=== PATIENT | male | born 1955 | race Caucasian/White ===

== ENCOUNTER 2021-08-16 14:18 | Emergency (ER) | payer BC ==
--- OUTSIDE RECORDS SUMMARY | 2021-08-16 14:20 | XMS REPORT | Continuity of Care Document ---
:1955 Author Organization [facility] t Address [address] [place] [address] Care Team Providers Name Role Phone Pcp, Does Not Have A Primary Care Physician MONTEZ Attending Clinician Unavailable Montez WEBER Attending Clinician Payers Payer Name Policy Type Policy Number Effective Date Expiration Date S ource [facility] [id number] 2016 00:00:00 Problems Condition Condition Condition Status Onset Resolution Last Treating Co mments Source Name Details Category Date Date Treatment Clinician Date Low back Low back Disease Active Unive rs pain with pain with 3-11 ity of right[place] sciatica, sciatica, Bran ch unspecifie unspecifie d back d back pain pain laterality laterality , , unspecifie unspecifie d d chronicity chronicity Acute Acute Disease Active 2018-09 Univers left-sided left-sided 2-03 it y of low back low back 00:00: [place] pain with pain with 00 Medi karin left-sided left-sided Br anch sciatica sciatica Lumbar Lumbar Disease Active 2018-09 Univers radiculopa radiculopa 2-03 it y of thy thy 00:00: [place] 00 Medical Branch Umbilical Umbilical Disease Active Uni vers hernia hernia ity of [place] [facility] Allergies, Adverse Reactions, Alerts Allergy Allergy Status Severity Reaction(s) Onset Inactive Treating Comm ents Source Name Type Date Date Clinician PENICILL Drug Active High Anaphylaxis Uni vers INS Class 5-15 ity of 00:00: [place] 00 Medical Branch Penicill Propensi Active Anaphylaxis 2017- U nivers ins ty to 5-15 ity of adverse 00:00: [place] reaction 00 Medical s to Branch drug Social History Social Habit Start Date Stop Date Quantity Comments Source History SDOH University o f Alcohol Frequency [facility] edical Branch History SDOH University o f Alcohol Std Drinks [place] [facility] History SDOH University o f Alcohol Binge [place] [facility] Exposure to Not sure [facility] SARS-CoV-2 (event) [facility] Alcohol intake 2019-09-01 2019-09-01 Current drinker Unive rsity of 00:00:00 00:00:00 of alcohol [facility] (finding) Branch Cigarette 2018-02-11 2018-02-11 University of pack-years 00:00:00 00:00:00 [facility] Tobacco use and 2018-02-11 2018-02-11 Never used Universit y of exposure 00:00:00 00:00:00 [facility] Alcohol Comment 2018-02-11 2018-02-11 3 drinks Universit y of 00:00:00 00:00:00 (beer/rum) per [facility] night Branch Cigarettes smoked 2018-02-11 2018-02-11 Univers ity of current (pack per 00:00:00 00:00:00 [facility] ) - Reported Branch History of tobacco 2012-09-30 Smoker Univer sity of use 00:00:00 [facility] Sex Ass[birth year] Universit y of 00:00:00 00:00:00 [facility] Smoking Status Start Date Stop Date Source Former smoker 2018-02-11 00:00:00 2018-02-11 00:00:00 Universi ty of [facility] Medications Ordered Filled Start Stop Current Ordering Indication Dosage Frequency Signature Comments Components Source Medication Medication Date Date Medication? Clinician (SIG) Name Name apremilast Yes 10mg Take 10 mg U nivers (OTEZLA 9-13 by mouth 2 ity of ORAL) 13:30: (two) [place] 13 times Medical daily. Branch apremilast Yes 10mg Take 10 mg U nivers (OTEZLA 9-13 by mouth 2 ity of ORAL) 13:30: (two) [place] 13 times Medical daily. Branch traMADol 50 2018-09 Yes [id number] 50mg Take 1 Univers mg tablet 2-03 tablet by ity o f 00:00: mouth [place] 00 every 6 Medical (six) Branch hours as needed for Pain (scale 7-10) for up to 30 doses. traMADol 50 2018-09 Yes [id number] 50mg Take 1 Univers mg tablet 2-03 tablet by ity o f 00:00: mouth [place] 00 every 6 Medical (six) Branch hours as needed for Pain (scale 7-10) for up to 30 doses. OTEZLA 2018-09 Yes Univers mg tablet 1-05 ity of 00:00: 00 [facility] Branch OTEZLA 2018-09 Yes Univers mg tablet 1-05 ity of 00:00: [place] 00 [facility] Immunizations Ordered Immunization Filled Immunization Date Status Commen ts Source Name Name Marley COVID-19 Hayleya COVID-19 2021-01-06 Completed Vaccine Vaccine 00:00:00 [place] COVID-19 Moderna COVID-19 2020-12-07 Completed Vaccine Vaccine 00:00:00 Vital Signs Vital Name Observation Time Observation Value Comments Source Body height 2021-07-24 14:05:00 170.2 cm [facility] Body weight 2021-07-24 14:05:00 92.534 kg [facility] BMI 2021-07-24 14:05:00 31.95 kg/m2 [facility] Procedures This patient has no known procedures. Encounters Start End Encounter Admission Attending Care Care Encounter Source Date/Time Date/Time Type Type Clinicians Facility Department ID 2021-09-04 2021-09-04 Outpatient [facility] [id number] Univers 08:30:00 08:30:00 [id number] ity [facility] [place] [facility] 2021-09-04 2021-09-04 Outpatient [facility] [id number] Univers 08:30:00 08:30:00 ity [facility] [place] [facility] 2021-07-24 2021-07-24 Office Pete Herrmann COBETH [id number] Univers 08:33:25 09:32:23 Visit HEALTH [id number] it y of CLEAR [id number] Myra ANSARI [id number] [address] OFFICE BUILDING 2021-07-24 2021-07-24 Outpatient [facility] [id number] Univers 08:30:00 08:30:00 ity [facility] [place] [facility] 2021-07-24 2021-07-24 Outpatient Lakeshia [facility]ERRMANN [facility] [id number] Univers 08:30:00 08:30:00 [id number] ity [facility] 2021-06-26 2021-06-26 Outpatient [facility]ia [facility] [id number] Univers 09:30:00 09:30:00 [id number] ity [facility] 2021-06-26 2021-06-26 Outpatient Lakeshia [facility] [id number] Univers 00:00:00 00:00:00 [facility] 2021-06-12 2021-06-12 Outpatient Lakeshia [facility] [id number] Univers 13:15:00 13:15:00 [id number] [facility] 2021-06-12 2021-06-12 Outpatient Lakeshia [facility] [id number] Univers 13:15[facility] 2021-01-06 Outpatient [facility] [id number] [facility] 00:00:00 00:00:00 V 2020-12-07 2020-12-07 Outpatient [facility] [id number] [facility] 00:00:00 00:00:00 V Results This patient has no known results.
[2021-08-16 14:46] LABS: Absolute Lymphocytes (CBC) 1.8 K/uL (0.7-4.9); Hematocrit 41.7 % (39.6-49.0); Lymphocytes % 31.5 % (15.3-44.8); MPV 7.1 fL (7.6-11.3); RBC Red Blood Cell Count 4.35 M/uL (4.33-5.43)
[2021-08-16] MEDS ORDERED: DIAZEPAM 5 MG TABLET ONE (14:47)
[2021-08-16] MEDS ORDERED: NA CHLORIDE 0.9% 500 ML ONE (14:47)
[2021-08-16] MEDS ORDERED: LORazepam 2 MG/ML VIAL ONE (14:51)
--- NOTE | 2021-08-16 14:52 | RAD REPORT ---
EXAM DESCRIPTION: CT - Ct Stroke Brain Wo Cont - 08/16/2021 2:43 pm CLINICAL HISTORY: DIZZINESS, CVA COMPARISON: No comparisons TECHNIQUE: Axial 5 millimeter thick images of the head were obtained without IV contrast. All CT scans are performed using dose optimization technique as appropriate and may include automated exposure control or mA/KV adjustment according to patient size. FINDINGS: No intracranial hemorrhage, mass, or cerebral edema. No acute infarction identifiable. No cortical edema or sulcal effacement. Ventricles are normal. Arterial and physiologic calcifications a re present. There is some patchy decreased attenuation in the external capsule and subcortical insula r cortex region. No extra-axial fluid collections. Figueroa matter-white matter differentiation is prese rved. Visualized portions of the mastoid air cells, paranasal sinuses, and orbits are unremarkable. Findings telephoned to Emily the emergency department 2:47 p.m. IMPRESSION: No hemorrhage or acute intracranial finding confirmed. Minimal chronic ischemic changes are evident. Follow-up MR imaging could be performed if there is ongoing concern for acute CVA.
[2021-08-16 15:00] LABS: Protime INR 0.96
[2021-08-16 15:05] LABS: BUN Blood Urea Nitrogen 15 mg/dL (7-18); Bicarbonate 25 mmol/L (21-32); Glucose Level 145 mg/dL (74-106); Potassium 3.8 mmol/L (3.5-5.1); Sodium Level 139 mmol/L (136-145); Troponin (Emerg Dept Use Only) < 0.02 ng/mL (0.0-0.045)
--- NOTE | 2021-08-16 15:36 | RAD REPORT ---
EXAM DESCRIPTION: MRI - Brain Wo Cont - 08/16/2021 3:22 pm CLINICAL HISTORY: DIZZINESS, stroke-like symptoms COMPARISON: Ct Stroke Brain Wo Cont dated 08/16/2021 TECHNIQUE: Sagittal T1-weighted images were obtained along with axial PD, heavily T2-weighted and T2 -FLAIR images. Axial DWI and ADC mapping sequences were also obtained along with coronal heavily T2-w eighted images. FINDINGS: No intracranial hemorrhage, mass or acute infarction. There is no edema or shift of midlin e structures. No extra-axial fluid collections. Figueroa-matter/white matter junction is preserved. Signa l voids are seen as a normal finding in the major intracranial vessels. No measurable atrophy changes . Patient only has trace amounts of chronic ischemic change in the cerebral white matter. No globe or orbital content abnormality. No sella or supra sella abnormality. Mastoid air cells and paranasal sinuses are clear. IMPRESSION: No infarction or other acute intracranial finding. Trace chronic ischemic change in the cerebral white matter.
[2021-08-16] MEDS ORDERED: MECLIZINE HCL 12.5 MG TAB ONE (16:01)
--- NOTE | 2021-08-16 16:47 | RAD REPORT ---
EXAM DESCRIPTION: RAD - Chest Single View - 08/16/2021 4:19 pm CLINICAL HISTORY: dizziness COMPARISON: None TECHNIQUE: AP portable chest image was obtained 08/16/2021 4:19 pm . FINDINGS: Lungs are clear. Low lung volumes and under penetrated technique accentuate the interstiti al markings. Heart and vasculature are normal. No measurable pleural effusion and no pneumothorax. No acute bony abnormality seen. No acute aortic findings suspected. IMPRESSION: No acute cardiopulmonary process.
--- NOTE | 2021-08-16 17:18 | ER ---
Nurse's Notes [facility] Name: Turner Paul Age: 65 yrs Sex: Male : 1955 Arrival Date: 08/16/2021 Time: 14:19 Bed 13 Private MD: Diagnosis: Vertigo, unspecified;Dizziness and giddiness;Nausea Presentation: 08/16 14:21 Chief complaint: Patient states: i was fine one minute and the next i was dizzy and tw2 nauseous. i was standing. i ate lunch around 1130 and was fine all morning. Coronavirus screen: nausea, Client presents with at least one sign or symptom that may indicate coronavirus-19. Standard/surgical mask placed on the client. Provider contacted for isolation considerations. Ebola Screen: Patient denies travel to an Ebola-affected area in the 21 days before illness onset. Initial Sepsis Screen: Does the patient meet any 2 criteria? No. Patient's initial sepsis screen is negative. Does the patient have a suspected source of infection? No. Patient's initial sepsis screen is negative. Risk Assessment: Do you want to hurt yourself or someone else? Patient reports no desire to harm self or others. Onset of symptoms was August 16, 2021. 14:21 Method Of Arrival: Ambulatory tw2 14:21 Acuity: ESTELLA 3 tw2 Triage Assessment: 14:24 General: Appears in no apparent distress. Behavior is calm, cooperative, appropriate tw2 for age. Pain: Denies pain. Neuro: Reports dizziness. GI: Reports nausea. Historical: - Allergies: 14:23 PENICILLINS; tw2 - Home Meds: 14:23 Otezla 30 mg oral tab 1 tab 2 times per day [Active]; "anti-inflammatory" [Active]; tw2 - PMHx: 14:23 psoriasis; chronic back pain, L3-4; tw2 - PSHx: 14:23 hernia sx; tw2 - Immunization history:: Client reports receiving the 2nd dose of the Covid vaccine, Flu vaccine is up to date. - Social history:: Smoking status: Reported history of juuling and/or vaping. Patient uses alcohol, on a daily basis. admits to "couple of beers" a day. - Family history:: not pertinent. - Hospitalizations: : No recent hospitalization is reported. Screenin:30 Abuse screen: Denies threats or abuse. Nutritional screening: No deficits noted. tw2 Tuberculosis screening: No symptoms or risk factors identified. Fall Risk None identified. Assessment: 14:30 Reassessment: provider at bedside. tw2 14:37 Reassessment: pt to ct. kd3 Vital Signs: 14:21 BP 140 / 87; Pulse 76; Resp 18; Temp 97.9(TE); Pulse Ox 96% on R/A; Weight 90.72 kg tw2 (R); Height 5 ft. 7 in. (170.18 cm); Pain 0/10; 16:19 BP 146 / 92; Pulse 63; Resp 16; Pulse Ox 96% on R/A; kd3 14:21 Body Mass Index 31.32 (90.72 kg, 170.18 cm) tw2 NIH Stroke Scale Scores: 15:05 NIHSS Score: 0 rn endocrinology Course: 14:19 Patient arrived in ED. as 14:23 Triage completed. tw2 14:24 Arm band placed on. tw2 14:25 Camden Valadez MD is Attending Physician. rn 14:25 Bed in low position. Call light in reach. Pulse ox on. NIBP on. tw2 14:43 CT Stroke Brain w/o Contrast In Process Unspecified. EDMS 15:07 MRI - Brain Wo Cont In Process Unspecified. EDMS 16:19 Stroke CXR 1 View In Process Unspecified. EDMS 16:54 Beverly Hernandez, RN is Primary Nurse. kd3 17:17 Enrrique Leo MD is Referral Physician. rn 17:51 No provider procedures requiring assistance completed. IV discontinued. bp Administered Medications: 14:45 Drug: Valium (diazepam) 5 mg Route: PO; kd3 14:55 Drug: Ativan (LORazepam) 0.5 mg Route: IVP; Site: left antecubital; tw2 17:53 Follow up: Response: No adverse reaction bp 15:45 Drug: NS 0.9% 500 ml Route: IV; Rate: bolus; Site: left antecubital; kd3 17:52 Follow up: Rate change 500 bolus; IV Status: Completed infusion bp 16:07 Drug: Meclizine 50 mg Route: PO; kd3 17:52 Follow up: Response: No adverse reaction bp Outcome: 17:17 Discharge ordered by . rn 17:51 Discharged to home ambulatory. bp 17:51 Condition: stable 17:51 Discharge instructions given to patient, Instructed on discharge instructions, follow up and referral plans. medication usage, Demonstrated understanding of instructions, follow-up care, medications. 17:53 Patient left the ED. bp NIH Stroke Scale - NIH Stroke Score Date: 08/16/2021 Time: 15:05 Total Score = 0 1a. Level of Consciousness (LOC) - 0(Alert) 1b. Level of Consciousness (LOC) (Month \\T\\ Age) - 0(Both) 1c. LOC Commands (Open \\T\\ Closes Eyes/Chemical Dependency Therapist) - 0(Both) 2. Best Gaze (Lateral Gaze Paresis) - 0(Normal) 3. Visual Field Loss - 0(No visual loss) 4. Facial Palsy - 0(Normal) 5a. Left Arm: Motor (10-second hold) - 0(No drift) 5b. Right Arm: Motor (10-second hold) - 0(No drift) 6a. Left Leg: Motor (5-second hold - always test supine) - 0(No drift) 6b. Right Leg: Motor (5-second hold - always test supine) - 0(No drift) 7. Limb Ataxia (finger/nose \\T\\ heel/rodriguez - test with eyes open) - 0(Absent) 8. Sensory Loss (pinprick arms/legs/face) - 0(Normal) 9. Best Language: Aphasia (description/naming/reading) - 0(No aphasia) 10. Dysarthria (speech clarity - read or repeat words) - 0(Normal) 11. Extinction and Inattention (visual/tactile/auditory/spatial/personal) - 0(No abnormality) Initials: rn Signatures: Dispatcher [employer] Monica Swan Roman, MD MD rn Wise, Tara, RN RN tw2 London Caruso RN RN bp Doucette, Kyli, RN RN kd3
--- NOTE | 2021-08-16 17:18 | EDPHYS ---
Physician Documentation [facility] Name: Turner Paul Age: 65 yrs Sex: Male : 1955 Arrival Date: 08/16/2021 Time: 14:19 Bed 13 Private MD: ED Physician Camden Valadez HPI: 08/16 15:02 This 65 yrs old Male presents to ER via Ambulatory with complaints of rn Dizziness. 15:02 The patient presents with dizziness, feeling off balance, sense of spinning. Onset: The rn symptoms/episode began/occurred 45 minute(s) ago. Context: occurred at work, occurred while the patient was at rest, standing, just prior to the episode the patient experienced no apparent symptoms. Modifying factors: The symptoms are alleviated by nothing, the symptoms are aggravated by nothing. Severity of symptoms: At their worst the symptoms were moderate in the emergency department the symptoms are unchanged. The patient has not experienced similar symptoms in the past. The patient has not recently seen a physician. Patient reports that work, felt sudden onset dizziness, feels like everything is spinning and associated with nausea. Denies any preceding symptoms to this. When went to work today felt fine. No chest pain. No abdominal pain or diarrhea. Has never had this happen before. No other focal weakness or numbness. No speech or vision problems.. Historical: - Allergies: 14:23 PENICILLINS; tw2 - Home Meds: 14:23 Otezla 30 mg oral tab 1 tab 2 times per day [Active]; "anti-inflammatory" [Active]; tw2 - PMHx: 14:23 psoriasis; chronic back pain, L3-4; tw2 - PSHx: 14:23 hernia sx; tw2 - Immunization history:: Client reports receiving the 2nd dose of the Covid vaccine, Flu vaccine is up to date. - Social history:: Smoking status: Reported history of juuling and/or vaping. Patient uses alcohol, on a daily basis. admits to "couple of beers" a day. - Family history:: not pertinent. - Hospitalizations: : No recent hospitalization is reported. ROS: 15:02 Constitutional: Negative for fever, chills, and weight loss, Eyes: Negative for injury, rn pain, redness, and discharge, Neck: Negative for injury, pain, and swelling, Cardiovascular: Negative for chest pain, palpitations, and edema, Respiratory: Negative for shortness of breath, cough, wheezing, and pleuritic chest pain, Abdomen/GI: Negative for abdominal pain, vomiting, diarrhea, and constipation, MS/Extremity: Negative for injury and deformity, Skin: Negative for injury, rash, and discoloration, Neuro: Negative for headache, weakness, numbness, tingling, and seizure. Exam: 15:02 Constitutional: This is a well developed, well nourished patient who is awake, alert, rn and in no acute distress. Able to get himself out of wheelchair on his own and walk to bed Head/Face: Normocephalic, atraumatic. Eyes: Pupils equal round and reactive to light, extra-ocular motions intact. Lids and lashes normal. Conjunctiva and sclera are non-icteric and not injected. Cornea within normal limits. Periorbital areas with no swelling, redness, or edema. No nystagmus Neck: Trachea midline, no thyromegaly or masses palpated, and no cervical lymphadenopathy. Supple, full range of motion without nuchal rigidity, or vertebral point tenderness. No Meningismus. Cardiovascular: Regular rate and rhythm. No pulse deficits. Respiratory: No increased work of breathing, no retractions or nasal flaring. Abdomen/GI: Soft, non-tender Skin: Warm, dry MS/ Extremity: Pulses equal, no cyanosis. Neuro: Awake and alert, GCS 15, oriented to person, place, time, and situation. Cranial nerves II-XII grossly intact. Motor strength 5/5 in all extremities. Sensory grossly intact. Normal gait from chair to bed. Does not seem unbalanced or to fall to one side. Hand eye coordination seems intact. No nystagmus. Vital Signs: 14:21 BP 140 / 87; Pulse 76; Resp 18; Temp 97.9(TE); Pulse Ox 96% on R/A; Weight 90.72 kg tw2 (R); Height 5 ft. 7 in. (170.18 cm); Pain 0/10; 16:19 BP 146 / 92; Pulse 63; Resp 16; Pulse Ox 96% on R/A; kd3 14:21 Body Mass Index 31.32 (90.72 kg, 170.18 cm) tw2 NIH Stroke Scale Scores: 15:05 NIHSS Score: 0 rn MDM: 14:25 Patient medically screened. rn 15:05 ED course: Called from MRI given patient claustrophobic. Ativan ordered 0.5 mg IV.. rn 15:56 ED course: CT head negative, MRI negative, improved with valium. Not TPA candidate rn given neg MRI.. 16:15 ED course: Patient feels better reports dizziness now 4 out of 10. Notified of negative rn CT and MRI.. 17:15 Differential diagnosis: cardiac arrhythmia, CVA, generalized weakness, hypovolemia, rn idiopathic dizziness, TIA, vertigo. Data reviewed: vital signs, nurses notes, lab test result(s), EKG, radiologic studies, CT scan, MRI, plain films, and as a result, I will discharge patient. Counseling: I had a detailed discussion with the patient and/or guardian regarding: the historical points, exam findings, and any diagnostic results supporting the discharge/admit diagnosis, lab results, radiology results, the need for outpatient follow up, to return to the emergency department if symptoms worsen or persist or if there are any questions or concerns that arise at home. ED course: Pt feels much better, able to sit and walk now. MRI negative, will dc home with meclizine and neurology follow-up. Explained vertigo to patient and family member in the room. Will give a week off of work and told to not operate heavy machinery or drive until feels better and follows up with neurology. Explained different causes of vertigo and how we ruled out central causes of vertigo today with CT and MRI. Patient understands and given return precautions.. 08/16 14:31 Order name: Basic Metabolic Panel; Complete Time: 15: rn 08/16 14:31 Order name: CBC with Diff; Complete Time: 15: rn 08/16 14:31 Order name: Protime (+inr); Complete Time: 15:16 rn 08/16 14:31 Order name: Ptt, Activated; Complete Time: 15:16 rn 08/16 14:31 Order name: Troponin (emerg Dept Use Only); Complete Time: 15:16 rn 08/16 14:47 Order name: Glucose, Ancillary Testing; Complete Time: 15:16 EDMS 08/16 14:31 Order name: CT Stroke Brain w/o Contrast; Complete Time: 15: rn 08/16 14:31 Order name: Stroke CXR 1 View; Complete Time: 16:49 rn 08/16 14:31 Order name: EKG; Complete Time: 14:32 rn 08/16 14:31 Order name: MRI - Brain Wo Cont; Complete Time: 15:48 rn 08/16 14:31 Order name: Accucheck; Complete Time: 15:15 rn 08/16 14:31 Order name: Cardiac monitoring; Complete Time: 15:48 rn 08/16 14:31 Order name: EKG - Nurse/Tech; Complete Time: 16:08 rn 08/16 14:31 Order name: IV Saline Lock; Complete Time: 15:15 rn 08/16 14:31 Order name: Labs collected and sent; Complete Time: 15:47 rn 08/16 14:31 Order name: NPO; Complete Time: 15:47 rn 08/16 14:31 Order name: O2 Per Protocol; Complete Time: 15:47 rn 08/16 14:31 Order name: O2 Sat Monitoring; Complete Time: 15:47 rn 08/16 14:31 Order name: Stroke Swallow Screen; Complete Time: 15:46 rn Administered Medications: 14:45 Drug: Valium (diazepam) 5 mg Route: PO; kd3 14:55 Drug: Ativan (LORazepam) 0.5 mg Route: IVP; Site: left antecubital; tw2 17:53 Follow up: Response: No adverse reaction bp 15:45 Drug: NS 0.9% 500 ml Route: IV; Rate: bolus; Site: left antecubital; kd3 17:52 Follow up: Rate change 500 bolus; IV Status: Completed infusion bp 16:07 Drug: Meclizine 50 mg Route: PO; kd3 17:52 Follow up: Response: No adverse reaction bp Disposition Summary: 08/16/21 17:17 Discharge Ordered Location: Home rn Problem: new rn Symptoms: have improved rn Condition: Stable rn Diagnosis - Vertigo, unspecified rn - Dizziness and giddiness rn - Nausea rn Followup: rn - With: Enrrique Leo MD - When: 5 - 6 days - Reason: Recheck today's complaints, Re-evaluation by your physician Discharge Instructions: - Discharge Summary Sheet rn - Benign Positional Vertigo rn - Dizziness rn - Vertigo rn Forms: - Medication Reconciliation Form rn - Thank You Letter rn - Antibiotic repairer wood furniture - Prescription Opioid Use rn - Work release form bp Prescriptions: - Meclizine 25 mg Oral Tablet - take 1 tablet by ORAL route every 8 hours As needed; 30 tablet; Refills: 0, rn Product Selection Permitted NIH Stroke Scale - NIH Stroke Score Date: 08/16/2021 Time: 15:05 Total Score = 0 1a. Level of Consciousness (LOC) - 0(Alert) 1b. Level of Consciousness (LOC) (Month \\T\\ Age) - 0(Both) 1c. LOC Commands (Open \\T\\ Closes Eyes/Hall Tender) - 0(Both) 2. Best Gaze (Lateral Gaze Paresis) - 0(Normal) 3. Visual Field Loss - 0(No visual loss) 4. Facial Palsy - 0(Normal) 5a. Left Arm: Motor (10-second hold) - 0(No drift) 5b. Right Arm: Motor (10-second hold) - 0(No drift) 6a. Left Leg: Motor (5-second hold - always test supine) - 0(No drift) 6b. Right Leg: Motor (5-second hold - always test supine) - 0(No drift) 7. Limb Ataxia (finger/nose \\T\\ heel/rodriguez - test with eyes open) - 0(Absent) 8. Sensory Loss (pinprick arms/legs/face) - 0(Normal) 9. Best Language: Aphasia (description/naming/reading) - 0(No aphasia) 10. Dysarthria (speech clarity - read or repeat words) - 0(Normal) 11. Extinction and Inattention (visual/tactile/auditory/spatial/personal) - 0(No abnormality) Initials: rn Signatures: Dispatcher [employer] EDCamden Boston MD MD rn Wise, Tara, RN RN tw2 Beverly Hernandez RN RN kd3 [place] Caruso RN bp
[2021-08-16 18:46] VITALS: TEMP 97.9; O2SAT 96
[2021-08-16 18:47] VITALS: BP 146/92
== END 2021-08-16 17:53 | disposition home or self-care (01) ==
LOC: ER 14:18
DX: R42 Dizziness and giddiness (principal); R11.0 Nausea; Z88.0 Allergy status to penicillin
CPT/HCPCS: 96361; 93005; 85025; 80048; 36415; 85610; 82947; 85730; 84484; 70450; 71045; 70551; 96374; 99283; J7040